=== PATIENT | female | born 1940 | race Caucasian/White ===

== ENCOUNTER → 2016-06-14 | Outpatient (CLI) | payer OTHER, MEDICARE ==
--- NOTE | 2016-06-14 17:08 | DI ---
US UP/LOW EXT VEINS U/L OR LTD,06/14/2016 2:50 PM: Clinical History: Left leg pain. Previous Exam: None at this facility. Findings: Multiple grayscale and color Doppler sonographic images are obtained of the deep veins of the left lo wer Chavez, and demonstrate complete coaptation upon graded compression throughout the deep veins. There is a large Schultz's cyst noted within the popliteal fossa measuring 5 x 6 x 4 cm. Impression: No evidence of deep venous thrombosis. Large Schultz's cyst within the left posterior fossa.
== END ==
LOC: US 14:43 → LAB 14:43
PROVIDERS: ATTEND Orthopaedic Surgery
DX: M79.605 Pain in left leg (principal); M71.22 Synovial cyst of popliteal space [Baker], left knee
CPT/HCPCS: 93971